=== PATIENT | female | born 1960 | race Caucasian/White ===

== ENCOUNTER 2019-02-14 11:47 | Outpatient (CLI) | payer OTHER ==
[~2019-02-14 11:47] MED LIST: HYZAAR 100/25 T1 TAB; KETO10TA2 PO; LIPITOR20 MG; METFORMIN HCL1000 MG; METOPROLOL SUCC50 MG; NORVASC10 MG; ORPH100T PO
== END 2019-02-14 11:51 | disposition home or self-care (01) ==
LOC: MAMO-SONO 11:47
DX: Z12.31 Encounter for screening mammogram for malignant neoplasm of breast (principal); Z87.898 Personal history of other specified conditions

== ENCOUNTER 2020-07-12 08:43 | Outpatient (CLI) | payer OTHER | END 2020-07-12 08:55 | disposition HB | LOC: MAMO-SONO 08:43 | PROVIDERS: ATTEND Specialist | DX: N60.01 Solitary cyst of right breast (principal); Z12.31 Encounter for screening mammogram for malignant neoplasm of breast; N60.11 Diffuse cystic mastopathy of right breast; N60.12 Diffuse cystic mastopathy of left breast ==

== ENCOUNTER 2020-12-08 14:56 | Emergency (ER) | payer OTHER ==
[~2020-12-08] VITALS: Ht 172.7 cm; Wt 149.7 kg
[2020-12-08] MEDS ORDERED: HUMULIN R500 UNIT/2 (15:44)
[2020-12-08] MEDS ORDERED: DICLOFENAC SODI75 MG PO (18:38)
== END 2020-12-08 19:11 | disposition home or self-care (01) ==
LOC: ER 14:56
DX: S60.212A Contusion of left wrist, initial encounter (principal); S80.01XA Contusion of right knee, initial encounter; S00.83XA Contusion of other part of head, initial encounter; W18.39XA Other fall on same level, initial encounter; Y93.89 Activity, other specified; Y92.89 Other specified places as the place of occurrence of the external cause; Y99.8 Other external cause status

== ENCOUNTER 2021-07-25 13:25 | Outpatient (CLI) | payer OTHER ==
[~2021-07-25 13:25] MED LIST changes: +DICLOFENAC SODI75 MG PO; +HUMULIN R500 UNIT/2
== END 2021-07-25 13:41 | disposition home or self-care (01) ==
LOC: MAMO-SONO 13:25
PROVIDERS: ATTEND Surgery
DX: N60.12 Diffuse cystic mastopathy of left breast (principal); N60.11 Diffuse cystic mastopathy of right breast

== ENCOUNTER 2024-11-20 11:38 | Outpatient (CLI) | payer OTHER | END 2024-11-20 11:43 | disposition home or self-care (01) | LOC: MAMO-SONO 11:38 | PROVIDERS: ATTEND Specialist | DX: N60.11 Diffuse cystic mastopathy of right breast (principal); N60.12 Diffuse cystic mastopathy of left breast; Z12.31 Encounter for screening mammogram for malignant neoplasm of breast ==